=== PATIENT | male | born 1930 | race Caucasian/White ===

== ENCOUNTER 2016-07-12 12:03 | Observation (INO) | payer MEDICARE ==
[2016-07-12] MEDS ORDERED: Aspirin Low Dose CHEW TAB* 81 MG PO ONE (12:25)
--- NOTE | 2016-07-12 13:01 | RAD ---
HISTORY: Chest pain COMPARISONS: December 20, 2014 VIEWS:1: Single frontal portable view of the chest at 12:41 PM FINDINGS: LINES AND TUBES: None. CARDIOMEDIASTINAL SILHOUETTE: The cardiomediastinal silhouette is normal for portable technique. PLEURA: The costophrenic angles are sharp. No pleural abnormalities are noted. LUNG PARENCHYMA: The lungs are clear. ABDOMEN: The upper abdomen is clear. There is no subphrenic gas. BONES AND SOFT TISSUES: No bone or soft tissue abnormalities are noted. IMPRESSION: NO ACTIVE CARDIOPULMONARY DISEASE.
[2016-07-12 13:38] LABS: Hematocrit 40 % (42-52); Hemoglobin 13.5 g/dl (14.0-18.0); Mean Corpuscular HGB Conc 34 g/dl (31-36); Mean Corpuscular Hemoglobin 34 pg (27-31); Mean Corpuscular Volume 100 fL (80-94); Mean Platelet Volume 8 um3 (7.4-10.4); Red Blood Count 3.98 10^6/ul (4.0-5.4); Red Cell Distribution Width 13 % (10.5-15); White Blood Count 6.5 10^3/ul (3.5-10.8)
[2016-07-12 13:55] LABS: Albumin 3.5 g/dL (3.2-5.2); BUN/Creatinine Ratio 19.2 (8-20); Calcium 7.1 mg/dL (8.6-10.3); EGFR African American 87.7 (>60); EGFR Non-African American 68.2 (>60); Globulin 2.9 g/dL (2-4); Potassium 3.6 mmol/L (3.5-5.0); Total Bilirubin 0.5 mg/dL (0.2-1.0); Total Protein 6.4 g/dL (6.4-8.9)
[2016-07-12 14:20] LABS: T4 9.23 g/dL (6.09-12.23)
[2016-07-12 14:21] LABS: TSH (Thyroid Stimulating Horm) 0.66 mcIU/mL (0.34-5.60)
[2016-07-12] MEDS ORDERED: Ondansetron INJ* 2 MG/ML VIAL IV PRN (14:39)
[2016-07-12] MEDS ORDERED: Calcium Carbonate TAB* 1250 MG (CALCIUM 500 MG) PO ONE (14:50)
--- NOTE | 2016-07-12 14:51 | ED ---
Mason Enriquez Billy, scribed for Adriel Monroe MD on 07/12/16 at 1241 . Complex/Multi-Sys Presentation - HPI Summary HPI Summary: Patient is an 85 year-old male referred to [facility] by Dr. Culver (cardiology). Patient reports that he had his Holter monitor taken off this morning at 1030 and approximately an hour afterwards, he received the call from Dr. Culver. He states that he has had several episodes of SVT in his sleep but denies any symptoms at this time; denies CP, SOB, palpitations. He does state, however, that he had taken double his dose of Lasix last night and had some mild dizziness afterwards but otherwise denies any symptoms. - History Of Current Complaint Chief Complaint: EDDysrhythmPalp Time Seen by Provider: 07/12/16 12:31 Hx Obtained From: Patient Severity Currently: None Location: Negative Aggravating Factor(s): none Alleviating Factor(s): none Associated Signs And Symptoms: Negative: Dizziness, SOB, Chest Pain, Palpitations - Allergies/Home Medications Allergies/Adverse Reactions: Allergies Allergy/AdvReac Type Severity Reaction Status Date / Time Tetanus Immune Globulin Allergy Unknown Verified 07/12/16 12:11 Reaction Details Home Medications: Home Medications Furosemide TAB* [Lasix TAB*] 20 - 40 mg PO QAM MDD 20 mg 07/12/16 [History Confirmed 07/12/16] Levothyroxine TAB* [Synthroid TAB*] 137 mcg PO QAM 07/12/16 [History Confirmed 07/12/16] PMH/Surg Hx/FS Hx/Imm Hx Endocrine/Hematology History: Reports: Hx Thyroid Disease - HYPO R/T THYROIDECTOMY 2009 Denies: Hx Diabetes Cardiovascular History: Reports: Other Cardiovascular Problems/Disorders - HX AFIB 2010 Denies: Hx Congestive Heart Failure, Hx Hypertension Respiratory History: Reports: Other Respiratory Problems/Disorders - pluersy 3 yrs ago History: Denies: Hx Renal Disease Musculoskeletal History: Denies: Hx Osteoporosis Sensory History: Reports: Hx Cataracts - RIGHT EYE, Hx Contacts or Glasses - GLASSES Denies: Hx Hearing Aid Opthamlomology History: Reports: Hx Cataracts - RIGHT EYE, Hx Contacts or Glasses - GLASSES - Cancer History Cancer Type, Location and Year: skin lesion. thyroid cancer Hx Chemotherapy: No - Surgical History Surgery Procedure, Year, and Place: 2006 thyroidectomy [facility] [place]. 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 - Social History Alcohol Use: Weekly Alcohol Amount: 5/WEEK Substance Use Type: Reports: None Smoking Status (MU): Former Smoker Type: Cigarettes Amount Used/How Often: LESS THEN 1PPWK Have You Smoked in the Last Year: No Review of Systems Negative: Palpitations, Chest Pain Negative: Shortness Of Breath All Other Systems Reviewed And Are Negative: Yes Physical Exam - Summary Physical Exam Summary: VITAL SIGNS: Reviewed. GENERAL: Patient is a well developed and nourished male who is lying comfortable in the stretcher. Patient is not in any acute respiratory distress. HEAD AND FACE: No signs of trauma. No ecchymosis, hematomas or skull depressions. No sinus tenderness. EYES: PERRLA, EOMI x 2, No injected conjunctiva, no nystagmus. EARS: Hearing grossly intact. Ear canals and tympanic membranes are within normal limits. MOUTH: Oropharynx within normal limits. NECK: Supple, trachea is midline, no adenopathy, no JVD, no carotid bruit, no c- spine tenderness, neck with full ROM. CHEST: Symmetric, no tenderness at palpation LUNGS: Clear to auscultation bilaterally. No wheezing or crackles. CVS: Regular rate and rhythm, S1 and S2 present, no murmurs or gallops appreciated. ABDOMEN: Soft, no abdominal tenderness. No signs of distention. No rebound no guarding, and no masses palpated. Bowel sounds are normal. EXTREMITIES: FROM in all major joints, no edema, no cyanosis or clubbing. NEURO: Alert and oriented x 3. No acute neurological deficits. Speech is normal and follows commands. SKIN: Dry and warm Triage Information Reviewed: Yes Vital Signs On Initial Exam: Initial Vitals Temp Pulse Resp BP Pulse Ox 98.1 F 109 16 140/88 99 07/12/16 12:11 07/12/16 12:11 07/12/16 12:11 07/12/16 12:11 07/12/16 12:11 Vital Signs Reviewed: Yes Diagnostics - Vital Signs Vital Signs Temp Pulse Resp BP Pulse Ox 07/12/16 12:11 98.1 F 109 16 140/88 99 - Laboratory Result Diagrams: 07/12/16 13:30 07/12/16 13:30 Lab Statement: Any lab studies that have been ordered have been reviewed, and results considered in the medical decision making process. - Radiology CXR Xray Interpretation: No Acute Changes Radiology Interpretation Completed By: Radiologist - EKG 1220 EKG Interpretation: afib 90 bpm, no ST elevation Complex Multi-Symp Course/Dx Assessment/Plan: Patient is an 85 year-old male referred to [facility] by Dr. Culver (cardiology). Patient reports that he had his Holter monitor taken off this morning at 1030 and approximately an hour afterwards, he received the call from Dr. Culver. He states that he has had several episodes of SVT in his sleep but denies any symptoms at this time; denies CP, SOB, palpitations. He does state, however, that he had taken double his dose of Lasix last night and had some mild dizziness afterwards but otherwise denies any symptoms. Bloodwork WNL except for Hgb 13.5 and hematocrit of 40 and calcium 7.1. CXR shows no acute pathology. EKG shows afib 90 bpm. I discussed the case and test results with Dr. Culver, who recommends that the patient be admitted to hospitalist services. Requested to do echo, and he will consult for patient. Pt is hemodynamically stable, A&Ox3. I discussed the case with Dr. Alba, who accepted the patient for admission. Patient was given calcium PO - Diagnoses Differential Diagnoses/HQI/PQRI: Cardiac Ischemia - ACS, Arrythmia Provider Diagnoses: Arrhythmia, Hypocalcemia - Physician Notifications Discussed Care Of Patient With: Dr. Culver (cardiology) @ 1425: recommends admission to hospitalist services. Dr. Alba (hospitalist) @ 1428: accepts admission. Discharge - Discharge Plan Condition: Stable Disposition: ADMITTED TO [facility] Referrals: William Gomez MD [Primary Care Provider] - The documentation as recorded by the Mason telles Billy accurately reflects the service I personally performed and the decisions made by me, Adriel Monroe MD.
[2016-07-12] MEDS ORDERED: Ascorbic Acid TAB* 500 MG PO PRN (14:56)
[2016-07-12] MEDS ORDERED: Calcium Gluconate INJ* 2 GM in NS 0.9% 100 ML* 100 ML IVPB ONE (14:57)
[2016-07-12 19:30] LABS: Urine Bilirubin Negative (Negative); Urine Glucose Negative (Negative); Urine Nitrite Negative (Negative)
[2016-07-12] MEDS: Calcium Carbonate LIQ* 1,250 MG/5 ML UDC PO SCH (19:42)
[2016-07-12] MEDS: Calcitriol CAP* 0.25 MCG PO SCH (19:42)
[2016-07-12] MEDS: Heparin VIAL(*) 5000 UNITS/ML VIAL (FIVE THOUSAND) SUBCUT SCH (21:12)
--- NOTE | 2016-07-12 22:48 | HP ---
HISTORY AND PHYSICAL: DATE OF ADMISSION: 07/12/16 TIME OF MY EVALUATION: 4:00 p.m. PRIMARY CARE PROVIDER: William Gomez MD SENIOR APPLICATIONS ANALYST: Matthew Cuvler MD, [facility] Cardiology. CHIEF COMPLAINT: Abnormal Holter monitor. HISTORY OF PRESENT ILLNESS: Mr. Randolph is an 85-year-old gentleman with an unimpressive past medical history who presents to the hospital after being directed to report based on concerning Holter monitor results. The patient has atrial fibrillation with occasional right bundle branch patter,n and there were several times when the patient had a period of tachycardia where it could not be said for sure whether it was ventricular tachycardia or rapid supraventricular arrhythmia with aberrancy. The patient is stable. He does not have any chest pain or shortness of breath. He was actually surprised when he was told he needs to come to the hospital and even more surprised when he was told he needs to stay. The intent is to complete an ischemic workup. The plan is tentatively for an echocardiogram and then a stress test. PAST MEDICAL HISTORY: Hypothyroidism with thyroidectomy in 2009, hypocalcemia, history of AFib, history of pleurisy 3 years ago, history of right eye cataracts. OUTPATIENT MEDICATIONS: 1. Furosemide 20 or 40 mg by mouth in the morning. 2. Multivitamin 1 tab by mouth once daily. 3. Vitamin C 1 tab by mouth once daily. 4. Calcitriol 0.25 mg by mouth twice daily. 5. Calcium carbonate 1250 mg by mouth twice daily. 6. Cyanocobalamin 1000 mcg by mouth daily. 7. Levothyroxine 137 mcg by mouth daily. 8. Potassium chloride 20 mEq by mouth in the morning. 9. Prednisone 5 mg by mouth in the morning. ALLERGIES: TETANUS IMMUNIZATION. FAMILY HISTORY: Reviewed, but noncontributory. SOCIAL HISTORY: The patient is accompanied by his whom he lives with. He is a nonsmoker. He was a former smoker, less than 1 pack per week at most. He drinks alcohol only socially, never in excess. The patient's is his surrogate decision maker. Her name is Nereida Randolph who can be reached at [phone]. The patient is a full code. REVIEW OF SYSTEMS: A review of 14 systems was accomplished at the bedside. This is largely negative except for the pertinent positives mentioned above in the HPI and past medical history. No pertinent positives to mention. PHYSICAL EXAMINATION GENERAL APPEARANCE: An elderly man appears stated age, in no apparent distress , awake, alert and oriented x3, and answers questions appropriately. VITAL SIGNS: Temperature 97.7, pulse 84, respirations 17, oxygen saturation 91 % on room air, blood pressure 120/78. HEENT: Oropharynx is clear. Mucous membranes are moist. NECK: Supple. No elevated JVD, status post thyroidectomy. LUNGS: Clear breath sounds anteriorly and posteriorly. HEART: Irregularly irregular rhythm. No murmurs appreciated. ABDOMEN: Soft, nontender. SKIN: Dry and intact. No rashes, lesions, or breakdown. NEUROLOGIC: No sensory, motor proprioception or reflex or other deficiencies. PSYCH: Normal affect. No acute anxiety or depression. LYMPHS: No adenopathy appreciated. ADMISSION DATA: White blood cell count normal at 6.5, hemoglobin normal at 13.5, platelets 151. Chemistries are normal except for calcium of 7.1, which is consistent with his need for calcium supplementation. Urinalysis is negative. Chest x-ray was clear. EKG showed atrial fibrillation at a rate of 90 with PVCs noted on the tracing. IMPRESSION: Mr. Randolph is a pleasant 85-year-old gentleman with an abnormal Holter monitor showing, perhaps, ventricular tachycardia. The patient is placed on observation status to complete an ischemic workup. The patient's troponin is negative. We will recheck this in the morning and order a transthoracic echocardiogram as well as a stress test. The patient will be on telemetry monitoring continuously with further clinical plans based on his progress in the hospital. Consult Dr. Culver - Cardiology to assess the patient and guide in ischemic workup. Continue outpatient medications. Hypocalcemia - replete with 2 g calcium gluconate and recheck calcium in the morning. Surrogate decision maker is the patient's . DVT prophylaxis, subcu heparin. TIME SPENT: Total time taken to admit Mr. Randolph was 55 minutes, greater than half that time was spent going over the history and physical examination and explaining the hospital plan of care to the patient. CC: William Gomez MD; Matthew Culver MD, [facility] Cardiology * [id number]/[facility] #: [id number] MTDD
[2016-07-13] MEDS: Heparin VIAL(*) 5000 UNITS/ML VIAL (FIVE THOUSAND) SUBCUT SCH ×2 (05:01→13:26)
[2016-07-13 05:49] LABS: Hematocrit 37 % (42-52); Hemoglobin 12.9 g/dl (14.0-18.0); Mean Corpuscular HGB Conc 34 g/dl (31-36); Mean Corpuscular Hemoglobin 34 pg (27-31); Mean Corpuscular Volume 99 fL (80-94); Mean Platelet Volume 8 um3 (7.4-10.4); Red Blood Count 3.78 10^6/ul (4.0-5.4); Red Cell Distribution Width 13 % (10.5-15); White Blood Count 6.4 10^3/ul (3.5-10.8)
[2016-07-13] MEDS ORDERED: Levothyroxine TAB* 137 MCG TAB PO SCH (06:00)
[2016-07-13 06:06] LABS: BUN/Creatinine Ratio 19.8 (8-20); Calcium 7.8 mg/dL (8.6-10.3); EGFR African American 90.7 (>60); EGFR Non-African American 70.5 (>60); Potassium 3.8 mmol/L (3.5-5.0)
[2016-07-13 08:47] VITALS: BP 116/79
[2016-07-13] MEDS ORDERED: Potassium Chlor TAB* 20 MEQ TAB.ER PO SCH (09:00)
[2016-07-13] MEDS ORDERED: predniSONE TAB* 5 MG PO SCH (09:00)
[2016-07-13] MEDS ORDERED: Cyanocobalamin TAB* 500 MCG PO SCH (09:00)
--- NOTE | 2016-07-13 12:35 | RAD ---
HISTORY: Ventricular tachycardia on Holter COMPARISONS: None TECHNIQUE: A 1 day stress/rest myocardial perfusion study was performed, with pharmacologic stress. The stress portion was monitored by Dr. Alvarez. Gated SPECT imaging was performed, with CT-based attenuation correction DOSE: Stress: Technetium 99m tetrofosmin, 25.59 millicuries, injected at 10:55 AM on July 13, 2016 Rest: Technetium 99m tetrofosmin, 10.89 millicuries, injected at 8:30 AM on July 13, 2016 Pharmacologic agent: Lexiscan FINDINGS: CARDIAC MONITORING: Baseline EKG abnormalities preclude accurate assessment for ischemia with stress EF: 54 % TID: 1.1 MOTION: Normal motion, with normal wall thickening. PERFUSION: There is a fixed area of hypoperfusion of the lateral wall with questionable small area of marginal reversibility towards the apex OTHER: None IMPRESSION: FINDINGS SUGGESTIVE OF PREVIOUS INFARCT OF THE LATERAL WALL WITH QUESTIONABLE SMALL AREA OF PARTIAL REVERSIBILITY TOWARDS THE APEX ASSESSMENT: LOW RISK. Based on imaging criteria from ACC/AHA 2002. Guideline Update for the Management of Patient's with Chronic Stable Angina, table 23. Noninvasive Risk Stratification.
[2016-07-13] MEDS: Calcium Carbonate LIQ* 1,250 MG/5 ML UDC PO SCH (13:24)
[2016-07-13] MEDS: Calcitriol CAP* 0.25 MCG PO SCH (13:25)
[2016-07-13] MEDS ORDERED: Regadenoson* 0.4 MG/5 ML SYRINGE ONE (14:36)
--- NOTE | 2016-07-13 15:00 | CONSULT ---
Subjective Date of Service: 07/13/16 Interval History: Admission Date: 07/12/16 Provider: Johan Alba MD PRIMARY CARE PROVIDER: William Gomez MD MANAGER [employer] Matthew Culver MD CHIEF COMPLAINT: VT, abnormal stress test HISTORY OF PRESENT ILLNESS: Mr. Randolph is an 85-year-old with a history of paroxysmal atrial fibrillation. He has had several falls vs. LOC over last year. Some were clearly mechanical related. In [place] around the holidays was walking up crowded stairs to [employer]ianism. Next thing he knows was on the ground there was no prodrome had broke foot. Family members present have different account of event. No chest pain, palpitations, WATERMAN, edema. For a holter monitor for atrial fibrillation he was found to have an episode of 40 beat VT > 180 bpm in sleeping hours and was asymptomatic. He was brought into the hospital for a stress test, was done lexiscan and showed a small apical defect. He has had no arrhythmia on telemetry monitoring. Given the small apical ischemia, VT and ? syncope vs. fall episode I did advise a cardiac catheterization. He is on xarelto so would need to hold 2 days for an elective procedure. I offered to have him stay in the hospital over the weekend and be done Saturday morning but he would like to go home. He realized he is taking a risk with this approach and fully accepts that risk. PAST MEDICAL HISTORY: Hypothyroidism with thyroidectomy in 2009, Paroxysmal Afib History of pleurisy 3 years ago, History of right eye cataracts. ? CHF ALLERGIES: TETANUS IMMUNIZATION. FAMILY HISTORY: Reviewed, but noncontributory. SOCIAL HISTORY: The patient is accompanied by his whom he lives with. He is a nonsmoker. He was a former smoker, less than 1 pack per week at most. He was drinking 1-2 glasses of wine most days but stopped last month. The patient's is his surrogate decision maker. Her name is Nereida Randolph who can be reached at [phone]. The patient is a full code. Medications Active Medications: Ascorbic Acid (Vitamin C Tab*) 500 mg PO DAILY PRN PRN Reason: CATHCHING A COLD Calcitriol (Rocaltrol Cap*) 0.25 mcg PO BID [facility] Last Admin: 07/13/16 13:25 Dose: 0.25 mcg Calcium Carbonate (Calcium Carbonate Liq*) 1,250 mg PO BID [facility] Last Admin: 07/13/16 13:24 Dose: 1,250 mg Cyanocobalamin (Vitamin B12 Tab*) 1,000 mcg PO DAILY [facility] Last Admin: 07/13/16 13:25 Dose: 1,000 mcg Heparin Sodium (Porcine) (Heparin Vial(*)) 5,000 units SUBCUT Q8HR [facility] Last Admin: 07/13/16 13:26 Dose: 5,000 units Levothyroxine Sodium (Synthroid Tab*) 137 mcg PO DAILY@0600 [facility] Last Admin: 07/13/16 05:01 Dose: 137 mcg Ondansetron HCl (Zofran Inj*) 4 mg IV Q4H PRN PRN Reason: NAUSEA/VOMITING Potassium Chloride (Klor Con Er Tab*) [facility] Last Admin: 07/13/16 13:25 Dose: 20 meq Prednisone (Deltasone Tab*) 5 mg PO QAM [facility] Last Admin: 07/13/16 13:26 Dose: 5 mg Home Medications: Multivitamins/Minerals TAB* [Thera M Plus TAB*] 1 tab PO QAM 12/03/14 [History Confirmed 07/12/16] predniSONE TAB* [Deltasone TAB*] 5 mg PO QAM 12/03/14 [History Confirmed ] Cyanocobalamin TAB* [Vitamin B12 TAB*] 1,000 mcg PO DAILY 03/28/15 [History Confirmed 07/12/16] Ascorbic Acid TAB* [Vitamin C TAB*] 1 tab PO DAILY PRN 06/13/15 [History Confirmed 07/12/16] Calcitriol CAP* [Rocaltrol CAP*] 0.25 mcg PO BID 06/13/15 [History Confirmed ] Calcium Carbonate LIQ* [Calcium Carbonate Liq*] 1,250 mg PO BID 06/13/15 [ History Confirmed 07/12/16] Potassium Chlor TAB* [Klor Con ER TAB*] 20 meq PO QAM 06/13/15 [History Confirmed 07/12/16] Furosemide TAB* [Lasix TAB*] 20 - 40 mg PO QA MDD 20 mg 07/12/16 [History Confirmed 07/12/16] Levothyroxine TAB* [Synthroid TAB*] 137 mcg PO QAM 07/12/16 [History Confirmed 07/12/16] Review of Systems - Measurements Intake and Output: Intake and Output Last 24 Hours 07/11/16 07/12/16 07/13/16 07/14/16 06:59 06:59 06:59 06:59 Intake Total 120 0 Output Total 450 0 Balance -330 0 Weight 184 lb 14.4 oz Intake: IV Fluids 120 Oral 0 0 Output: Urine 450 0 Other: # Bowel Movements 0 # Voids 0 - Review of Systems Constitutional Symptoms: Positive: Unexplained Falls Negative: Weight Gain, Weight Loss, Weakness, Fatigue, Fever Dermatology: Negative: Rash, Skin Lesions HEENT: Negative: Change in Hearing, Vertigo, Tinnitus Eyes: Negative: Change in Vision, Double Vision, Glaucoma, Cataracts Thyroid: Negative: Cold Intolerance, Heat Intolerance, Constipation, Palpitations, Primary Hypothyroidism, Primary Hyperthyroidism, Weight Loss, Weight Gain Pulmonary: Negative: Cough, Sputum, Hemoptysis, Wheezing, Respiratory Distress, Shortness of Breath, COPD Cardiology: Negative: Normal, Chest Pain, Shortness of Breath, Palpitations, Swelling of Ankles, Peripheral Vascular Dis, Faintness, Claudication, Paroxysmal Nocturnal Dyspnea, Orthopnea Gastroenterology: Negative: Abdominal Pain, Nausea, Vomiting, Anorexia, Indigestion, Difficulty Swallowing, Heartburn, Constipation, Diarrhea, Blood in Stools, Change in Bowel Habits Genital - Urinary: Negative: Hematuria, Polyuria, Nocturia, Other Genitourinay - Female: Negative: Menses Normal, Menopause Musculoskeletal: Negative: Joint Pain, Joint Stiffness, Arthritis, Osteoporosis, Low Back Pain Endocrinology: Negative: Thyroid Problems, Diabetes, Hyperglycemia, Hypoglycemia, Calluses, Hirsutism, Polydipsia, Polyuria Hematologic/Lymphatic: Positive: Use of Anticoagulant Negative: Easy Brusing, Hx Leukemia, Hx Lymphoma, Use of Antiplatelet Drugs Neurology: Negative: Normal, Headaches, Migraines, Change in Vision, Diplopia, Dizziness , Change in Balancing, Change in Coordination, Change in Memory, Change in Speech, Change in Sphincter Function, Change in Walking, Numbness\Paresthesiae, Hx of Stroke\TIA, Hx Seizures Psychiatry: Negative: Anxiety, Depressed Mood, Sexual Dysfunction, Weight Change, Guilt Feelings, Tearfulness, Unusual Fatigue Allergic/Immunologic: Negative: Hx Anaphylaxis, Hx Angioedema, Hx Environmental Allergies, Hx Seasonal Allergies Review of Systems Statement: All other review of systems negative, unless stated above. Objective Vital Signs: Temp Pulse Resp BP Pulse Ox 98.0 F 77 16 116/79 97 07/13/16 07:19 07/13/16 07:19 07/13/16 07:19 07/13/16 07:19 07/13/16 07:19 Appearance: pleasant, NAD Ears/Nose/Mouth/Throat: Clear Oropharnyx Neck: NL Appearance and Movements; NL JVP Respiratory: Symmetrical Chest Expansion and Respiratory Effort, Clear to Auscultation Cardiovascular: NL Sounds; No Murmurs; No JVD, No Edema, - - irregularly irregular Abdominal: NL Sounds; No Tenderness; No Distention Extremities: No Edema Skin: No Rash or Ulcers Neurological: Alert and Oriented x 3 Laboratory Results: 07/13/16 05:40 07/13/16 05:40 Total Bilirubin 0.50 mg/dL (0.2-1.0) 07/12/16 13:30 AST 21 U/L (13-39) 07/12/16 13:30 ALT 13 U/L (7-52) 07/12/16 13:30 Alkaline Phosphatase 57 U/L (34-104) 07/12/16 13:30 Total Protein 6.4 g/dL (6.4-8.9) 07/12/16 13:30 Albumin 3.5 g/dL (3.2-5.2) 07/12/16 13:30 Globulin 2.9 g/dL (2-4) 07/12/16 13:30 Albumin/Globulin Ratio 1.2 (1-3) 07/12/16 13:30 TSH 0.66 mcIU/mL (0.34-5.60) 07/12/16 13:30 07/12/16 07/12/16 16:03 17:48 Troponin I 0.01 0.00 Diagnostic Imaging: Stress test vasodilator 07/13/[address] Pemberton: Small reversible apical defect, normal LVEF NELLY 2009: LVEF 45% globally hypokinetic TTE 07/13/2016: LVEF 40% limited by Afib and PVC's EKG Data: ekg admission: Afib, ivcd, aberrancy, pvc ekg 06/18/2016: Afib, RBBR, aberrant beats, probable pvcs Assessment/Plan Mr. 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 fall vs. syncope in the past, asymptomatic VT on holter monitor during overnight sleeping hours here for inpatient stress test showed small apical reversible defect, TTE LVEF 40%. - Start aspirin 81 mg PO daily, intensive dose statin, and metoprolol for now - May benefit from AceI soon - Keep K > 4 and Mg > 2 - Continue xarelto 20 mg PO daily. - Patient would like to be discharged and return to hospital for coronary angiogram which will arrange with Dr. Culver next week, to hold xarelto 2 days prior. Further evaluation and management per Dr. Culver Thank you for allowing me to participate in the cardiovascular care of this patient. Please do not hesitate to contact me if there should be any questions or concerns.
--- NOTE | 2016-07-13 15:20 | ECHO ---
Patient: VICTORINO RODARTE [facility] Rec#: [id number] : 1930 Date: 07/13/2016 Age: 85y Height: 180 cm / 70.9 in Weight: 81 kg / 178.5 lbs Sex: M BSA: 2.01 Admit Date#: 07/12/2016 Type: Inpatient Referring: Johan Alba MD Reading: Randal Pemberton DO Tree Wrapper: Manuel Schafer RDCS Transthoracic Echocardiogram Indication: A.FIB BP: 109/67 HR: 76 Rhythm: A-Fib Findings History: A.FIB, former smoker Technical Comments: The study quality is good. Left Ventricle: The left ventricular chamber size is normal. Mild concentric left ventricular hypertrophy is observed. Global left ventricular wall motion and contractility are within normal limits. There is mildly decreased left ventricular systolic function.at 40% The assessment of diastolic function is non-diagnostic. Left Atrium: The left atrium is mildly dilated. Right Ventricle: The right ventricular chamber size and systolic function are within normal limits. Right Atrium: The right atrium is slightly dilated. Aortic Valve: The aortic valve is trileaflet. The aortic valve leaflets are mildly thickened. There is a trace of aortic regurgitation. There is no evidence of aortic stenosis. Mitral Valve: There is mitral annular calcification. There is trace to mild mitral regurgitation. There is no evidence of mitral stenosis. Tricuspid Valve: There is trace tricuspid regurgitation. Pulmonic Valve: The pulmonic valve appears normal. There is a trace pulmonic regurgitation. There is no pulmonic stenosis. Pericardium: There is no pericardial effusion. Aorta: There is no dilatation of the ascending aorta. There is no dilatation of the aortic arch. There is no dilation of the aortic root. Pulmonary Artery: The main pulmonary artery is not well visualized. Venous: The venous system is not well visualized. The inferior vena cava is not visualized. Conclusions The left ventricular chamber size is normal. Mild concentric left ventricular hypertrophy is observed. There is mildly decreased left ventricular systolic function with global hypokinesis The estimated ejection fraction is at least mildly reduced at 40%, accuracy limited by presence of atrial fibrillation and PVC's The left atrium is mildly dilated. No significant valvular abnormalities noted. Compared to NELLY from 2010, the LVEF remains at least mildly reduced (45% previously), accuracy limited by presence of atrial fibrillation Measurements Name Value Normal Range RVIDd (AP) 2D 2.2 cm (0.9 - 2.6) RVDdMajor (2D) 2.8 cm (2.2 - 4.4) RAd ISD 4CH 5.6 cm (3.4 - 4.9) RA (A4C)W 3.9 cm (2.9 - 4.6) IVSd (2D) 1.2 cm (0.6 - 1) LVPWd (2D) 1.1 cm (0.6 - 1) LVIDd (2D) 4.5 cm (3.6 - 5.4) LVIDs (2D) 3.3 cm - LV FS (2D) 26 % (25 - 45) Aortic Annulus 2.5 cm (1.4 - 2.6) Ao root diameter (2D) 3.3 cm (2.1 - 3.5) Ascending Ao 3.2 cm (2.1 - 3.4) Aortic arch 2.4 cm (1.8 - 3.4) LA dimension (AP) 2D 4.5 cm (2.3 - 3.8) LAd ISD 4CH 6.8 cm (2.9 - 5.3) LA ISD 4CH W 3.7 cm (2.5 - 4.5) Name Value Normal Range LA ESV SP 4CH (A/L) 94 ml - LA ESV SP 2CH (A/L) 58 ml - LA ESV BP (A/L) 76 ml - LA ESV BP (A/L) index 38.1 ml/m2 - LA ESV SP 4CH (MOD) 82 ml - LA ESV SP 2CH (MOD) 55 ml - Name Value Normal Range MV E-wave Vmax 0.61 m/sec - MV deceleration time 106 msec - MV E:A ratio 1.03 ratio - LV septal e' Vmax 8.7 m/sec - LV lateral e' Vmax 7.6 m/sec - LV E:e' septal ratio 0.07 ratio - LV E:e' lateral ratio 0.08 ratio - Name Value Normal Range LVOT diameter 1.9 cm - LVOT Vmax 1 m/sec - Name Value Normal Range TR Vmax 2 m/sec - TR peak gradient 15 mmHg - Name Value Normal Range PV Vmax 0.79 m/sec - PV peak gradient 2.48 mmHg -
--- NOTE | 2016-07-13 19:57 | PN ---
Hospitalist Progress Note . HOSPITALIST DISCHARGE NOTE: See dc instructions and summary by me. Patient stable for dc dc instructions reviewed with the patient at the bedside. DC patient home today.
--- NOTE | 2016-07-14 12:13 | DS ---
DISCHARGE SUMMARY: DATE OF ADMISSION: 07/12/16 DATE OF DISCHARGE: 07/13/16 STATUS DURING HOSPITALIZATION: Observation. PRIMARY CARE PROVIDER: Dr. William Gomez, [facility]. CONSULTING JUDICIAL REPORTER: Dr. Randal Pemberton. OUTPATIENT JUDICIAL REPORTER: Dr. Matthew Culver, [facility] Cardiology. PRINCIPAL DISCHARGE DIAGNOSIS: Ventricular tachycardia on Holter monitor with a stress test showing potentially reversible ischemia in the apex with likely need for cardiac catheterization. SECONDARY DIAGNOSES: 1. Hypothyroidism following thyroidectomy in 2009. 2. History of atrial fibrillation in 2010 and thereafter. 3. History of pleurisy 3 years ago. 4. History of right eye cataract - removal. OUTPATIENT MEDICATIONS: 1. Furosemide 40 mg by mouth in the morning. 2. Multivitamin 1 tablet by mouth once daily. 3. Vitamin C 1 tablet by mouth once daily. 4. Calcitriol 0.25 mg by mouth twice daily. 5. Calcium carbonate 1250 mg by mouth twice daily. 6. Cyanocobalamin 1000 mcg by mouth daily. 7. Levothyroxine 137 mcg by mouth daily. 8. Potassium chloride 20 mEq by mouth in the morning. 9. Prednisone 5 mg by mouth in the morning. 10. New: Metoprolol 25 mg by mouth twice daily. 11. New: Aspirin 81 mg by mouth daily. 12. New: Lipitor 40 mg by mouth daily. 13. Xarelto 20 mg by mouth daily. HISTORY OF PRESENT ILLNESS AND HOSPITAL COURSE: Please see the H and P by me on 07/12/16. In brief, Mr. Randolph is an 85-year-old gentleman who had a Holter monitor for palpitations in the outpatient setting. He has also had several episodes of falls, some of which was concerning for syncope. He was referred for admission for an ischemic workup including an echocardiogram and a stress test. The patient's echocardiogram was done on 07/12/16 and showed a left ventricle with normal chamber size but with mildly decreased left ventricular systolic function with global hypokinesis with the ejection fraction mildly reduced at 40% with the left atrium mildly dilated, with no significant valvular abnormalities noted, and of note, the comparison NELLY from 2009 demonstrated this was a reduced left ventricular ejection fraction ( compared to 45% previously), but the accuracy was limited secondary to the presence of atrial fibrillation now. 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 This was discussed with Dr. Randal Pemberton, who saw the patient during the hospitalization. The patient was very eager to go home and the decision was made to treat the patient with new aspirin, beta-roxane, and statin therapy with intentions to perform an outpatient cardiac catheterization within the week. The patient was given very careful [id number] instructions and he said he would comply with any cardiac symptomatology that he might experience. The patient was counseled not to engage in any strenuous activity, but that ambulating was acceptable. The patient was counseled to stop his Xarelto about 2 days prior to his scheduled catheterization and that Saturday would likely be the last dose before his catheterization, which would likely happen mid next week. TIME SPENT: Total time taken to discharge Mr. Randolph was 45 minutes, greater than half the time spent going over the discharge instructions [id number] with the patient and his family. CONDITION AT DISCHARGE: Stable. CC: Dr. Gomez; Dr. Randal Pemberton; Dr. Matthew Culver * [id number]/CPS #: [id number] MTDD
== END 2016-07-13 17:13 | disposition home or self-care (01) ==
LOC: ED 12:03 → MEDTELE 14:39
PROVIDERS: ADMIT Internal Medicine; ATTEND Internal Medicine
DX: I49.9 Cardiac arrhythmia, unspecified (principal); E83.51 Hypocalcemia; E89.0 Postprocedural hypothyroidism; Z87.891 Personal history of nicotine dependence; Z88.7 Allergy status to serum and vaccine; I48.91 Unspecified atrial fibrillation
CPT/HCPCS: 36415; 71010; 78452; 80048; 80053; 81003; 82330; 83735; 84436; 84443; 84484; 85025; 93005; 93017; 93226; 93306; 99283; A9270-GY; A9502; G0378; J0610; J1644; J2785; J7512